=== PATIENT | male | born 1990 | race Caucasian/White ===

== ENCOUNTER 2019-05-06 06:05 | Day surgery (SDC) | payer OTHER ==
[~2019-05-06] VITALS: Ht 177.8 cm; Wt 81.6 kg
[2019-05-06 08:31] VITALS: BP 136/75
[2019-05-06] MEDS ORDERED: NORCO 5-325 TA1 EAC1 PO (10:17)
[2019-05-06 11:45] VITALS: BP 136/75
--- NOTE | 2019-05-09 15:49 | EKG ---
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
--- NOTE | 2019-05-09 15:50 | EKG ---
[address] [address] ELECTROCARDIOGRAM REPORT Name: JAZZY HARTMAN Room #: [facility]#: [id number] Admission: 05/06/19 Attend Phys: Mario Vale MD Discharge: 05/06/19 Date of : [birth year] Report #: [id number] THIS REPORT FOR: //name// [facility] Test Date: 2019-05-06 Test Time: 11:30:51 Pat Name: JAZZY HARTMAN Department: Room: 150 4 Gender: M Public Relations Representative: CASEY : 1990 Requested By: Tamiko Murcia Order Number: [id number] MD: Brady Mayo Measurements Intervals [place] Rate: 151 P: 0 [place]: 88 QRS: -26 QRSD: 97 T: 53 QT: 291 QTc: 462 Interpretive Statements Sinus tachycardia Borderline left axis deviation No previous ECG available for comparison Electronically Signed On 05-09-2019 15:50:15 LEGAL SERVICE SPECIALIST by Brady Mayo [email or web address] <ELECTRONICALLY SIGNED> By: Brady Mayo MD 05/09/19 1550 1130 29 Brady Mayo MD /SAVANNA
--- NOTE | 2019-05-10 17:06 | PATH ---
[facility] [place] [address] PATHOLOGY RPT PROCEDURE Name: JZAZY HARTMAN Room #: DEP [facility] M.R.#: [id number] Admission: 05/06/19 Date of : [birth year] Discharge: 05/06/19 Report #: [id number] Path Case #: [id number] [facility] Accession Number: [id number] . 01 Material submitted: . PART A: cystic duct - FRONTAL ANTERIOR CYST 3CM. Modifiers: frontal PART B: cystic duct - LEFT VERTEX CYST 3CM. Modifiers: left PART C: cystic duct - LEFT PARIETAL CYST 3CM PART D: cystic duct - LEFT OCCIPITAL CYST 5CM. Modifiers: left PART E: cystic duct - MID OCCIPITAL CYST 4CM. Modifiers: mid PART F: cystic duct - LEFT MASTIOID CYST 2CM. Modifiers: left PART G: cystic duct - RIGHT PARIETAL CYST 3CM. Modifiers: right PART H: cystic duct - RIGHT FRONTAL CYST 1CM. Modifiers: right PART I: cystic duct - [facility]. Modifiers: right PART J: cystic duct - RIGHT OCCIPITAL 3CM. Modifiers: right . 01 Clinical history: . Sebaceous cysts. . 02 Diagnosis: A. 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 . B. Cyst, left vertex, excision: - Pilomatrixoma associated with a ruptured reaction. - Negative for malignancy. . C. Cyst, left parietal cyst, excision: Pilomatrixoma. - Negative for malignancy. . D. Cyst, left occipital cyst, excision: - Pilomatrixoma associated with calcifications. - Negative for malignancy. . E. 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 - Negative for malignancy. . F. 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 - Focal bone present showing reactive changes. . G. Cyst, right parietal cyst, excision: - Pilomatrixoma associated with calcifications. [address] [address] PATHOLOGY RPT PROCEDURE Name: JAZZY HARTMAN Room #: [facility]P [facility]..#: [id number] Admission: 05/06/19 Date of : 89 Discharge: 05/06/19 Report #: [id number] Path Case #: [id number] - Negative for malignancy. . H. 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 - Negative for malignancy. . I. Cyst, right mastoid cyst, excision: - Pilomatrixoma associated with calcifications. - Negative for malignancy. . J. 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 (IUV:pit; 05/09/2019) . P 05/09/2019 1522 Local . 02 Comment: Part H was co-reviewed by Dr. Franca Judd who concurs with my diagnosis. (IUV:pit; 05/09/2019) . 02 Electronically signed: . Lucy Blake MD, Pathologist NPI- [id number] . 01 Gross description: . A. Received in formalin labeled "Nikole, Jazzy, frontal anterior cyst" is a fragmented bain-white cystic structure measuring 2.5 x 2.3 x 1.8 cm, which has an attached ellipse of bain-white skin measuring 2.7 x 1.5 x 0.5 cm. A b2b sales representative section is submitted in cassette A1. . B. Received in formalin labeled "Nikole, Jazzy, left vertex cyst" is an intact bain-white cystic structure measuring 2.5 x 2.5 x 1.3 cm, with an attached ellipse of bain-white skin measuring 3.6 x 1.8 x 0.5 cm. A b2b sales representative section is submitted in cassette B1. . C. Received in formalin labeled "Nikole, Jazzy, left parietal cyst" is an intact bain-white cystic structure measuring 2.5 x 2.1 x 0.9 cm, with an attached ellipse of bain-white skin measuring 3.7 x 1.7 x 0.4 cm. A b2b sales representative section is submitted in cassette C1. . D. Received in formalin labeled "Nikole, Jazzy, left occipital cyst" is a fragmented bain-white cystic structure measuring 4.2 x 4.0 x 2.0 cm, with an attached ellipse of bain-white skin measuring 4.5 x 2.2 x 0.4 centimeters. A b2b sales representative section is submitted in cassette D1. [address] [address] PATHOLOGY RPT PROCEDURE Name: JAZZY HARTMAN R Room #: [facility]#: [id number] Admission: 05/06/19 Date of : [birth year] Discharge: 05/06/19 Report #: [id number] Path Case #: [id number] . E. Received in formalin labeled "Jazzy Hartman, mid occipital cyst" is an intact bain-white cystic structure measuring 3.9 x 2.0 x 1.5 cm, with an attached ellipse of bain-white skin measuring 3.5 x 1.2 x 0.4 cm. A b2b sales representative section is submitted in cassette E1. . F. Received in formalin labeled "Jazzy Hartman, left mastoid cyst" is an intact bain-white cystic structure measuring 2.9 x 2.3 x 0.8 cm, with an attached ellipse of bain-white skin measuring 2.7 x 1.2 x 0.3 cm. A b2b sales representative section is submitted in cassette F1. . G. Received in formalin labeled "Jazzy Hartman, right parietal cyst" is an intact bain-white cystic structure measuring 3.9 x 1.4 x 0.7 cm, with an attached ellipse of bain-white skin measuring 3.7 x 1.2 x 0.5 cm. A b2b sales representative section is submitted in cassette G1. . H. Received in formalin labeled "Jazzy Hartman, right frontal cyst" is a fragmented bain-white cystic structure measuring 5.4 x 2.6 x 2.4 cm, with an attached ellipse of bain-white skin measuring 3.4 x 1.3 x 0.5 cm. A b2b sales representative section is submitted in cassette H1. . I. Received in formalin labeled "Jazzy Hartman, right mastoid cyst" are two bain-white cystic structures measuring 1.2 x 0.7 x 0.6 cm and 2.5 x 1.8 x 1.0 cm, with attached ellipses of bain-white skin measuring 1.3 x 0.5 x 0.5 cm and 2.8 x 1.3 x 0.5 cm respectively. Enterprise Security Architect sections are submitted in cassette I1. . J. Received in formalin labeled "Jazzy Hartman, right occipital cyst" is a fragmented bain-white cystic structure measuring in aggregate 4.2 x 3.0 x 1.8 cm. There are two attached ellipses of bain-white skin measuring 2.5 x 1.0 x 0.5 cm and 4.0 x 1.5 x 0.5 cm. Enterprise Security Architect tissue is submitted in cassette J1. ([facility]; 05/08/2019) [facility] 05/08/2019 [facility] Local . 02 Pathologist provided ICD-10: D23.4 . 02 CPT . 367881, 786134, 608104, 943383, 544936, 626793, 992383, 447352, 144878, 443251 Specimen Comment: Report sent to Performed at: [address] [id number] MD Fabricio Koenig MD Phone: [phone] Performed at: [address] [id number] [address] [address] PATHOLOGY RPT PROCEDURE Name: JAZZY HARTMAN Room #: DEP [facility] Elvis.Peggy#: [id number] Admission: 05/06/19 Date of : [birth year] Discharge: 05/06/19 Report #: [id number] [facility] Case #: [id number] [place] Lucy Blake MD Phone: [phone]
--- NOTE | 2019-05-13 14:01 | O ---
[facility] [place] [address] [place] [address] OPERATIVE REPORT Name: JAZZY HARTMAN Room #: DEP [facility].#: [id number] Admission: 05/06/19 Attend Phys: Mario Vale MD Discharge: 05/06/19 Date of : [birth year] Report #: [id number] THIS REPORT FOR: //name// CC: KAYLAN physician/PCP Mario Vale DATE OF SERVICE: 05/06/2019 PREOPERATIVE DIAGNOSIS: Multiple cysts in the scalp with a large cyst in the left occipital area. Cysts range from 2 to 5 cm in size. POSTOPERATIVE DIAGNOSIS: Multiple cysts in the scalp with a large cyst in the left occipital area. Cysts range from 2 to 5 cm in size. PROCEDURE PERFORMED: Excision of scalp cysts x 10 with complex closure of the left occipital scalp lesion. ANESTHESIA: General. SURGEON: Mario Vale MD COMPLICATIONS: None. ESTIMATED BLOOD LOSS: 200 mL. PROCEDURE NOTE: With the patient under general anesthesia, the patient was turned with the left side of his scalp facing anteriorly. Hair was trimmed and the hair was then prepped and draped in sterile fashion. The patient had a large cyst in the left occipital area that measured 5 cm. This was removed with part of the skin that overlies it. The cyst was found in the subcutaneous tissue and able to be excised. His cysts are quite complicated in that they do not have very good wall around it. I think the cystic materials were pushing through the wall. The excision was felt to be complete. The skin had to be elevated with dissecting the skin off the galea. Once this was performed, the skin was able to be brought together. A staple was used for closure. I did start with the frontal anterior vertex lesions, which were removed and then closed with suture. These are 3 cm in size. After 6 of these were done on the left, the patient was then turned with the right side up and then reprepped and draped. Two of the cyst measures 3 cm, one of them measured 2 cm. These were able to be brought together with primary closure with stapler. The patient tolerated the procedure well and was taken to recovery room. <ELECTRONICALLY SIGNED> By: Mario Vale MD 05/13/19 1401 1846 1917 Mario Vale MD /nt
--- NOTE | 2019-05-13 14:01 | H ---
[facility] [place] [place] [address] [place] [address] HISTORY AND PHYSICAL Name: JAZZY HARTMAN Room #: DEP [facility]..#: [id number] Admission: 05/06/19 Attend Phys: Mario Vale MD Discharge: 05/06/19 Date of : [birth year] Report #: [id number] THIS REPORT FOR: //name// CC: KAYLAN physician/PCP Mario Vale HISTORY OF PRESENT ILLNESS: The patient is a 28-year-old who has had multiple cysts in his scalp. Quite a few of them have been removed. Recently, he has noticed new areas of involvement. 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 He is seen in the office. There is a large cyst on the left side, which is kind of bilobed shape. He has at least 5 of these cysts that are least 2-3 cm in size. He is recommended to undergo excision of these. The patient will require an anesthetic to tolerate the procedure, which will be easier for him. The patient is brought in for the procedure. PAST MEDICAL HISTORY: He is healthy. No heart disease, no diabetes, no high blood pressure or lung disease. No liver, no kidney disease, no bleeding history. No history of blood clot. There is family history of scalp cyst. PAST SURGICAL HISTORY: Office procedures removed multiple cysts. Had a parotid tumor removed in 2015. Has scar revision of that area. MEDICATIONS: None. ALLERGIES: None. Lidocaine does not seem to work very well for him. He is not really allergic to it. FAMILY HISTORY: Otherwise, unremarkable. SOCIAL HISTORY: The patient does not smoke. He does not drink. REVIEW OF SYSTEMS: Unremarkable. No chest pain, shortness of breath or palpitation. PHYSICAL EXAMINATION: GENERAL: Well-nourished male. HEENT: Multiple cysts were identified in the scalp, there is a large one in the left parietal area that is bilobed shape could be 1 or a couple of them, they are adjacent to each other. Several cysts are in the occipital area and a couple of cysts in the frontal area. He has a scar in the left side of his neck from his prior surgery. Pupils react to light. NECK: Soft and supple, no masses. LUNGS: Clear to auscultation. HEART: Regular rate and rhythm. No murmur or gallop. ABDOMEN: Soft, nondistended, nontender. No mass, guarding, rigidity, rebound. [facility] [address] [place] [address] HISTORY AND PHYSICAL Name: JAZZY HARTMAN Room #: DEP [facility]#: [id number] Admission: 05/06/19 Attend Phys: Mario Vale MD Discharge: 05/06/19 Date of : 89 Report #: [id number] EXTREMITIES: No cyanosis, clubbing or edema. IMPRESSION: The patient with multiple cysts in the scalp. These are bothering him, particularly when he is at work and has to wear ear protection headphone. They are pressing on these cysts and causing pain. Excision is recommended. The patient is brought in for procedure. Since he has so many of them, patient will be put on anesthetic. Local anesthetic apparently does not work, especially lidocaine does not seem to be very effective for him. Excision of these and closure will be performed. He is aware that some of his cysts are quite difficult to remove and that they have been in the office past, but I do not think the recurrences are in the site of previous removal. I think they are different areas and keeps coming back. <ELECTRONICALLY SIGNED> By: Mario Vale MD 05/13/19 1401 2217 [id number] Mario Vale MD /nt
== END 2019-05-06 12:50 | disposition home or self-care (01) ==
LOC: OR 06:05 → TBA 06:08 → OR 07:04
DX: D23.4 Other benign neoplasm of skin of scalp and neck (principal); Z98.890 Other specified postprocedural states; Z88.8 Allergy status to other drugs, medicaments and biological substances; Z79.891 Long term (current) use of opiate analgesic; Z79.899 Other long term (current) drug therapy
CPT/HCPCS: 50010; 50101; 50386; 50417; 51412; 56527; 62110; 62900; 70005